=== PATIENT | female | born 1980 | race Caucasian/White ===

== ENCOUNTER 2017-04-19 00:07 | Emergency (ER) | payer MEDICAID, OTHER ==
[~2017-04-19] VITALS: Ht 160 cm; Wt 90.7 kg
[2017-04-19 00:29] LABS: BILIRUBIN,URINE NEGATIVE (NEGATIVE); KETONES,URINE NEGATIVE (NEGATIVE); LEUKOCYTE ESTERASE ,URINE NEGATIVE (NEGATIVE); NITRITE,URINE NEGATIVE (NEGATIVE); PH,URINE 6.5 (5-9); PROTEIN,URINE NEGATIVE (NEGATIVE); UROBILINOGEN,URINE NORMAL (NORMAL)
[2017-04-19] MEDS ORDERED: LACTATED RINGERS 1,000 ML IV ONE (00:32)
[2017-04-19] MEDS ORDERED: KETOROLAC 30 MG/ML VIAL IVP STA (00:32)
[2017-04-19 00:44] LABS: BASOPHILS % (AUTO) 0 % (0-10); EOSINOPHILS # (AUTO) 0.1 10^3/uL (0.0-0.3); EOSINOPHILS % (AUTO) 1 % (0-10); LYMPHOCYTES # (AUTO) 2.6 X 10^3 (1.0-4.0); LYMPHOCYTES % (AUTO) 34 % (12-44); MEAN CORPUSCULAR HEMOGLOBIN 31 PG (25-34); MEAN CORPUSCULAR HGB CONC 34 G/DL (32-36); MEAN CORPUSCULAR VOLUME 90 FL (80-99); MEAN PLATELET VOLUME 10.5 FL (7.4-10.4); MONOCYTES # (AUTO) 0.5 X 10^3 (0.0-1.0); MONOCYTES % (AUTO) 7 % (0-12); NEUTROPHILS # (AUTO) 4.4 X 10^3 (1.8-7.8); NEUTROPHILS % (AUTO) 59 % (42-75); PLATELET COUNT 268 10^3/uL (130-400); RED BLOOD COUNT 4.07 10^6/uL (4.35-5.85); RED CELL DISTRIBUTION WIDTH 14.2 % (10.0-14.5); WHITE BLOOD COUNT 7.5 10^3/uL (4.3-11.0)
[2017-04-19 01:12] LABS: ALANINE AMINOTRANSFERASE 18 U/L (0-55); ALBUMIN 3.9 GM/DL (3.2-4.5); ANION GAP 13 MMOL/L (5-14); ASPARTATE AMINO TRANSFERASE 16 U/L (5-34); BILIRUBIN,TOTAL 0.3 MG/DL (0.1-1.0); BLOOD UREA NITROGEN 7 MG/DL (7-18); BUN/CREATININE RATIO 10; CALCIUM 9.4 MG/DL (8.5-10.1); CARBON DIOXIDE 19 MMOL/L (21-32); CHLORIDE 106 MMOL/L (98-107); CREATININE SERUM 0.69 MG/DL (0.60-1.30); GFR ESTIMATED > 60; GLUCOSE 107 MG/DL (70-105); POTASSIUM 3.2 MMOL/L (3.6-5.0); SODIUM 138 MMOL/L (135-145); TOTAL PROTEIN 6.9 GM/DL (6.4-8.2)
[2017-04-19] MEDS ORDERED: RX-CYCLOBENZAPRINE 10 MG (FLEXERIL) TAB PPK#3 PO STA (01:45)
[2017-04-19] MEDS ORDERED: CYCL10TA9 PO (01:48)
[2017-04-19] MEDS ORDERED: NAPR500T4 PO (01:48)
--- NOTE | 2017-04-19 01:49 | ED Abdominal Pain ---
General Chief Complaint: Abdominal/GI Problems Stated Complaint: ABD PAIN,LOWER RT SIDE Nursing Triage Note: PT TO ED 7 W/ C/O RLQ PAIN ONSET X4 DAYS, WORSE TODAY. DENIES N/V/D. DENIES ANY URINARY C/O BUT DOES REPORT FEELS SIMILAR TO WHEN SHE HAD A KIDNEY STONE LAST Sepsis Screen: No Definite Risk Source of Information: Patient History of Present Illness Time Seen By Provider: 00:24 Initial Comments C/O RLQ PAIN X 4 DAYS, AND GRADUALLY GETTING WORSE PAIN IS CONSTANT AND IS MUCH WORSE TODAY PAIN IS WORSE WITH MOVEMENTS, BENDING OVER STATES SHE HAS HAD A KIDNEY STONE IN THE PAST AND THIS FEELS SIMILAR NO URINARY SYMPTOMS NO FEVER NO NAUSEA/VOMITING NO CHANGE IN CHRONIC LOWER BACK PAIN HAS NOT TAKEN ANYTHING FOR PAIN LMP 1 WEEK AGO, NORMAL. PT HAS HAD BTL PCP--JUST MOVED HERE 1 MONTH AGO FROM [place], BUT PLANS TO ESTABLISH WITH [facility] Allergies and Home Medications Allergies Coded Allergies: No Known Drug Allergies (Unverified , 04/19/17) Home Medications Cyclobenzaprine HCl 10 Mg Tablet, 10 MG PO Q8H, #15 Prescribed by: LINNETTE THOMAS on 04/19/17 0148 Naproxen 500 Mg Tablet, 500 MG PO BID, #20 Prescribed by: LINNETTE THOMAS on 04/19/17 0148 Review of Systems Constitutional: no symptoms reported Respiratory: No Symptoms Reported Cardiovascular: No Symptoms Reported Gastrointestinal: See HPI, Abdominal Pain, Denies Constipated, Denies Diarrhea , Denies Nausea, Denies Vomiting Genitourinary: No Symptoms Reported Musculoskeletal: see HPI Skin: no symptoms reported Psychiatric/Neurological: No Symptoms Reported Endocrine: No Symptoms Reported Hematologic/Lymphatic: No Symptoms Reported Past Ildrqqj-Uvvgyg-Dowlke Hx Patient Social History Alcohol Use: Occasionally Uses Recreational Drug Use: No Smoking Status: Current Everyday Smoker (1 PPD) Type Used: Cigarettes Recent Foreign Travel: No Contact w/Someone Who Travel: No Recent Infectious Disease Expo: No Recent Hopitalizations: No Physical Abuse: No Sexual Abuse: No Mistreated: No Fear: No Surgeries History of Surgeries: Yes (KIDNEY STONE/URETERAL STENT PLACEMENT, D&C) Surgeries: Gallbladder, Renal, Tubal Ligation Respiratory History of Respiratory Disorde: No Cardiovascular History of Cardiac Disorders: No Neurological History of Neurological Disord: No Reproductive System : No Hx Reproductive Disorders: No 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 Genitourinary History of Genitourinary Disor: Yes Genitourinary Disorders: Kidney Stones Gastrointestinal History of Gastrointestinal Di: Yes Gastrointestinal Disorders: Gastroesophageal Reflux Musculoskeletal History of Musculoskeletal Dis: Yes Musculoskeletal Disorders: Chronic Back Pain Endocrine History of Endocrine Disorders: No HEENT History of HEENT Disorders: No Cancer History of Cancer: No Psychosocial History of Psychiatric Problem: No Suicide Risk Score: 0 Integumentary History of Skin or Integumenta: No Blood Transfusions History of Blood Disorders: No Physical Exam Vital Signs Capillary Refill : Less Than 3 Seconds General Appearance: WD/WN, no apparent distress HEENT: PERRL/EOMI, other (EXTENSIVE DENTAL DECAY) Neck: normal inspection Respiratory: normal breath sounds, no respiratory distress, no accessory muscle use Cardiovascular: regular rate, rhythm, no murmur Gastrointestinal: normal bowel sounds, soft, no organomegaly, no pulsatile mass , No distended, No guarding, No rebound, tenderness (RLQ), No hernia, No mass Extremities: normal inspection Back: normal inspection, no CVA tenderness 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, no motor/sensory deficits, alert, normal mood/affect, oriented x 3 Skin: normal color, warm/dry, other (MULTIPLE SORES/SCABS/SCARS TO FACE) Progress/Results/Core Measures Results/Orders Lab Results Laboratory Tests Test 04/19/17 00:22 04/19/17 00:36 Range/Units Urine Color YELLOW Urine Clarity SLIGHTLY CLOUDY Urine pH 6.5 5-9 Urine Specific [place] 1.015 L 1.016-1.022 Urine Protein NEGATIVE NEGATIVE Urine Glucose (UA) NEGATIVE NEGATIVE Urine Ketones NEGATIVE NEGATIVE Urine Nitrite NEGATIVE NEGATIVE Urine Bilirubin NEGATIVE NEGATIVE Urine Urobilinogen NORMAL NORMAL MG/DL Urine Leukocyte Esterase NEGATIVE NEGATIVE Urine RBC (Auto) NEGATIVE NEGATIVE Urine RBC NONE /HPF Urine WBC NONE /HPF Urine Squamous Epithelial Cells 10-25 H /HPF Urine Crystals NONE /LPF Urine Bacteria TRACE /HPF Urine Casts NONE /LPF Urine Mucus SMALL H /LPF Urine Culture Indicated NO Urine Test NEGATIVE NEGATIVE Urine Opiates Screen POSITIVE H NEGATIVE Urine Oxycodone Screen NEGATIVE NEGATIVE Urine Methadone Screen NEGATIVE NEGATIVE Urine Propoxyphene Screen NEGATIVE NEGATIVE Urine Barbiturates Screen NEGATIVE NEGATIVE Ur Tricyclic Antidepressants Screen NEGATIVE NEGATIVE Urine Phencyclidine Screen NEGATIVE NEGATIVE Urine Amphetamines Screen NEGATIVE NEGATIVE Urine Methamphetamines Screen NEGATIVE NEGATIVE Urine Benzodiazepines Screen NEGATIVE NEGATIVE Urine Cocaine Screen NEGATIVE NEGATIVE Urine Cannabinoids Screen NEGATIVE NEGATIVE White Blood Count 7.5 4.3-11.0 10^3/uL Red Blood Count 4.07 L 4.35-5.85 10^6/uL Hemoglobin 12.6 11.5-16.0 G/DL Hematocrit 37 35-52 % Mean Corpuscular Volume 90 80-99 FL Mean Corpuscular Hemoglobin 31 25-34 PG Mean Corpuscular Hemoglobin Concent 34 32-36 G/DL Red Cell Distribution Width 14.2 10.0-14.5 % Platelet Count 268 130-400 10^3/uL Mean Platelet Volume 10.5 H 7.4-10.4 FL Neutrophils (%) (Auto) 59 42-75 % Lymphocytes (%) (Auto) 34 12-44 % Monocytes (%) (Auto) 7 0-12 % Eosinophils (%) (Auto) 1 0-10 % Basophils (%) (Auto) 0 0-10 % Neutrophils # (Auto) 4.4 1.8-7.8 X 10^3 Lymphocytes # (Auto) 2.6 1.0-4.0 X 10^3 Monocytes # (Auto) 0.5 0.0-1.0 X 10^3 Eosinophils # (Auto) 0.1 0.0-0.3 10^3/uL Basophils # (Auto) 0.0 0.0-0.1 10^3/uL Sodium Level 138 135-145 MMOL/L Potassium Level 3.2 L 3.6-5.0 MMOL/L Chloride Level 106 98-107 MMOL/L Carbon Dioxide Level 19 L 21-32 MMOL/L Anion Gap 13 5-14 MMOL/L Blood Urea Nitrogen 7 7-18 MG/DL Creatinine 0.69 0.60-1.30 MG/DL Estimat Glomerular Filtration Rate > 60 BUN/Creatinine Ratio 10 Glucose Level 107 H 70-105 MG/DL Calcium Level 9.4 8.5-10.1 MG/DL Total Bilirubin 0.3 0.1-1.0 MG/DL Aspartate Amino Transf (AST/SGOT) 16 5-34 U/L Alanine Aminotransferase (ALT/SGPT) 18 0-55 U/L Alkaline Phosphatase 101 40-136 U/L Total Protein 6.9 6.4-8.2 GM/DL Albumin 3.9 3.2-4.5 GM/DL My Orders Orders - LINNETTE THOMAS DO Urine Bedside (04/19/17 00:23) Ua Culture If Indicated (04/19/17 00:23) Cbc With Automated Diff (04/19/17 00:32) Comprehensive Metabolic Panel (04/19/17 00:32) Drug Screen Stat (Urine) (04/19/17 00:32) Ct Abd/Pelvis Wo(Kidney Stone) (04/19/17 00:32) Abdomen/Kub 1view (04/19/17 00:32) Saline Lock/Iv-Start (04/19/17 00:32) Ketorolac Injection (Toradol Injection) (04/19/17 00:32) Saline Lock/Iv-Start (04/19/17 00:32) Lactated Ringers (Lr 1000 Ml Iv Solution (04/19/17 00:32) Hcg,Qualitative Urine (04/19/17 00:57) Rx-Cyclobenzaprine Tablet (Rx-Flexeril T (04/19/17 01:45) Iv Push 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 Ed (04/19/17 ) Medications Given in ED Vital Signs/I&O Blood Pressure Mean: 94 Progress Note : Progress Note PAIN EASED AT DISMISSAL Diagnostic Imaging Comments ACUTE ABDOMEN XRAYS--NO ACUTE PROCESS, PENDING RADIOLOGIST REVIEW CT ABDOMEN/PELVIS--NO ACUTE PROCESS, NO RENAL/URETERAL STONES, LEFT ADRENAL NODULE, SMALL HIATAL HERNIA AND FAT-CONTAINING UMBILICAL HERNIA--PER [facility] VIA FAX @ [phone] Reviewed: Reviewed by Me Departure Impression Impression: Primary Impression: RLQ abdominal pain Additional Impression: LEFT ADRENAL NODULE Disposition: 01 HOME, SELF-CARE Condition: Stable Departure-Patient Inst. Referrals: NO,LOCAL PHYSICIAN (PCP) Primary Care Physician [facility] Patient Instructions: Acute Abdomen (Belly Pain), Adult (DC) Add. Discharge Instructions: ACTIVITIES TOLERATED FOLLOW UP WITH IN 3-4 DAYS IF NO BETTER--LIST PROVIDED RETURN TO ER IF WORSE FOLLOW UP WITH FOR FURTHER EVALUATION OF ADRENAL NODULE All discharge instructions reviewed with patient and/or family. Voiced understanding. 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
[2017-04-19 02:01] VITALS: BP 128/67
--- NOTE | 2017-04-19 07:09 | Diagnostic Imaging Report ---
INDICATION: Right-sided abdominal pain. COMPARISON: CT abdomen and pelvis performed earlier same day. FINDINGS: Nonobstructive bowel gas pattern. No free intraperitoneal air. Cholecystectomy. No mineralized renal or ureteral calculi by radiography. Lung bases are clear. Normal regional skeleton. IMPRESSION: 1. No acute abnormality of the abdomen by radiography. Dictated by: Dictated on workstation # [id number]
--- NOTE | 2017-04-19 07:16 | Diagnostic Imaging Report ---
PROCEDURE: CT urinary tract, rule out kidney stone. TECHNIQUE: Multiple contiguous axial images were obtained through the abdomen and pelvis without the use of intravenous contrast. INDICATION: Right-sided abdominal pain. COMPARISON STUDIES: None. FINDINGS: There is a minimal hiatal hernia. Lung bases are clear. The gallbladder is absent. No duct dilatation or calculi are seen. The liver, spleen, pancreas, and kidneys appear normal. There is a left adrenal nodule measuring zero Hounsfield units. This is 1.8 cm in diameter. Findings are consistent with an adenoma. The appendix and bowel loops appear normal. A minimal umbilical hernia is present containing fat only. No inflammation is present. The urinary bladder, uterus and adnexal structures appear normal. IMPRESSION: 1. There is a minimal hiatal hernia and umbilical hernia containing fat only. 2. Left adrenal nodule consistent with an adenoma. 3. No acute findings are seen. Dictated by: Dictated on workstation # [id number]
== END 2017-04-19 02:01 | disposition home or self-care (01) ==
LOC: ER 00:11
DX: R10.31 Right lower quadrant pain (principal); E27.8 Other specified disorders of adrenal gland; F17.210 Nicotine dependence, cigarettes, uncomplicated; Z87.442 Personal history of urinary calculi; Z98.51 Tubal ligation status; Z96.0 Presence of urogenital implants
CPT/HCPCS: 36415; 74000; 74176; 80053; 80306; 81000; 84703; 85025; 96361; 96374

== ENCOUNTER → 2017-07-02 | Outpatient (CLI) | payer MEDICAID ==
[~2017-07-02] MED LIST: CYCL10TA9 PO; NAPR500T3 PO
== END ==
LOC: RAD 15:24
PROVIDERS: ATTEND Nurse Practitioner Family
DX: H47.10 Unspecified papilledema (principal); Z53.29 Procedure and treatment not carried out because of patient's decision for other reasons

== ENCOUNTER 2017-07-05 10:38 | Emergency (ER) | payer MEDICAID ==
[~2017-07-05] VITALS: Ht 160 cm; Wt 90.7 kg
[~2017-07-05 10:38] MED LIST changes: -NAPR500T3 PO; +NAPR500T4 PO
--- NOTE | 2017-07-05 11:12 | ED Integumentary General ---
General Stated Complaint: VAG ABSCESS/LOWER ABD PAIN Source: patient Exam Limitations: no limitations History of Present Illness Time seen by provider: 11:11 Initial Comments To ER with an abscess to the left side of the mons pubis present for about 4 days as well as some lower abdominal pain. No dysuria. She has a history of MRSA abscesses. No fevers or chills. Timing/Duration: week Severity: moderate Allergies and Home Medications Allergies Coded Allergies: No Known Drug Allergies (Unverified , 07/05/17) Home Medications Cyclobenzaprine HCl 10 Mg Tablet, 10 MG PO Q8H, #15 Prescribed by: LINNETTE THOMAS on 04/19/17 0148 Hydrocodone/Acetaminophen 1 Each Tablet, 1 EACH PO Q4H PRN for PAIN-SEVERE, #14 Prescribed by: JIL ROMANO on 07/05/17 1156 Naproxen 500 Mg Tablet, 500 MG PO BID, #20 Prescribed by: LINNETTE THOMAS on 04/19/17 0148 Sulfamethoxazole/Trimethoprim 1 Each Tablet, 1 EACH PO BID, #14 Prescribed by: JIL ROMANO on 07/05/17 1156 Constitutional: see HPI, No chills EENTM: see HPI Respiratory: no symptoms reported Cardiovascular: no symptoms reported Genitourinary: no symptoms reported Musculoskeletal: no symptoms reported Skin: no symptoms reported Psychiatric/Neurological: No Symptoms Reported Past Lhsqyqq-Nwaaxi-Szuovx Hx Patient Social History Type Used: Cigarettes Recent Foreign Travel: No Contact w/Someone Who Travel: No Recent Hopitalizations: No Surgeries History of Surgeries: Yes (KIDNEY STONE/URETERAL STENT PLACEMENT, D&C) Surgeries: Gallbladder, Renal, Tubal Ligation Respiratory History of Respiratory Disorde: No Cardiovascular History of Cardiac Disorders: No Neurological History of Neurological Disord: No Reproductive System Hx Reproductive Disorders: No 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 Genitourinary History of Genitourinary Disor: Yes Genitourinary Disorders: Kidney Stones Gastrointestinal History of Gastrointestinal Di: Yes Gastrointestinal Disorders: Gastroesophageal Reflux Musculoskeletal History of Musculoskeletal Dis: Yes Musculoskeletal Disorders: Chronic Back Pain Endocrine History of Endocrine Disorders: No HEENT History of HEENT Disorders: No Cancer History of Cancer: No Psychosocial History of Psychiatric Problem: No Integumentary History of Skin or Integumenta: No Blood Transfusions History of Blood Disorders: No Physical Exam Vital Signs Vital Sign - Last 12Hours 07/05/17 11:11 Temp 98.5 Pulse 108 Resp 18 B/P (MAP) 117/81 Pulse Ox 100 Capillary Refill : General Appearance: WD/WN, no apparent distress HEENT: PERRL/EOMI, normal ENT inspection Neck: non-tender, full range of motion Respiratory: no respiratory distress, no accessory muscle use Gastrointestinal: normal bowel sounds, non tender, soft Neurologic/Psychiatric: alert, normal mood/affect, oriented x 3 Skin: normal color, warm/dry Skin Problem Character: abscess (induration to the left side of the mons pubis up into the inguinal canal that measures about 10 cm in length. Minimal erythema. There is a small area of fluctuance.) I&D : Blade Size: 11 I & D Procedure: betadine prep Packing/Drain: 08/22 [place] Drain Progress Anesthetized with 7 mL of 2 percent lidocaine without epinephrine. Single stab incision made with 11 blade scalpel. Moderate amount of prune material expressed. Foul-smelling. Culture collected and sent to lab. Ordering Stevo suture in place with 2 sutures size 4-0 Prolene. Progress/Results/Core Measures Results/Orders Lab Results Laboratory Tests Test 07/05/17 11:05 07/05/17 11:21 Range/Units Urine Color YELLOW Urine Clarity CLEAR Urine pH 6.5 5-9 Urine Specific [place] 1.010 L 1.016-1.022 Urine Protein NEGATIVE NEGATIVE Urine Glucose (UA) NEGATIVE NEGATIVE Urine Ketones NEGATIVE NEGATIVE Urine Nitrite NEGATIVE NEGATIVE Urine Bilirubin NEGATIVE NEGATIVE Urine Urobilinogen NORMAL NORMAL MG/DL Urine Leukocyte Esterase NEGATIVE NEGATIVE Urine RBC (Auto) 2+ H NEGATIVE Urine RBC NONE /HPF Urine WBC NONE /HPF Urine Squamous Epithelial Cells 5-10 /HPF Urine Crystals NONE /LPF Urine Bacteria TRACE /HPF Urine Casts NONE /LPF Urine Mucus NEGATIVE /LPF Urine Culture Indicated NO White Blood Count 10.3 4.3-11.0 10^3/uL Red Blood Count 3.88 L 4.35-5.85 10^6/uL Hemoglobin 12.1 11.5-16.0 G/DL Hematocrit 36 35-52 % Mean Corpuscular Volume 92 80-99 FL Mean Corpuscular Hemoglobin 31 25-34 PG Mean Corpuscular Hemoglobin Concent 34 32-36 G/DL Red Cell Distribution Width 14.0 10.0-14.5 % Platelet Count 245 130-400 10^3/uL Mean Platelet Volume 10.5 H 7.4-10.4 FL Neutrophils (%) (Auto) 72 42-75 % Lymphocytes (%) (Auto) 19 12-44 % Monocytes (%) (Auto) 8 0-12 % Eosinophils (%) (Auto) 0 0-10 % Basophils (%) (Auto) 0 0-10 % Neutrophils # (Auto) 7.4 1.8-7.8 X 10^3 Lymphocytes # (Auto) 1.9 1.0-4.0 X 10^3 Monocytes # (Auto) 0.9 0.0-1.0 X 10^3 Eosinophils # (Auto) 0.0 0.0-0.3 10^3/uL Basophils # (Auto) 0.0 0.0-0.1 10^3/uL My Orders Orders - JIL ROMANO APRN Cbc With Automated Diff (07/05/17 11:09) Saline Lock/Iv-Start (07/05/17 11:09) Ua Culture If Indicated (07/05/17 11:09) Ct Pelvis W (07/05/17 11:09) Lidocaine 2% Injection 20 Ml (Xylocaine (07/05/17 11:15) Wound Culture (07/05/17 11:09) Sulfamethoxazole/Trimet Ds Tab (Bactrim (07/05/17 11:15) Hydrocodone/Apap 5/325 Tablet (Lortab 5 (07/05/17 11:15) Iohexol Injection (Omnipaque 350 Mg/Ml 1 (07/05/17 11:15) Ns (Ivpb) (Sodium Chloride 0.9% Ivpb Bag (07/05/17 11:15) Medications Given in ED Current Medications Medications Dose Ordered Sig/[place] Route Start Time Stop Time Status Last Admin Dose Admin Acetaminophen/ Hydrocodone Bitart 1 tab ONCE ONCE PO 07/05/17 11:15 07/05/17 11:16 DC 07/05/17 11:17 1 TAB Iohexol 100 ml ONCE ONCE IV 07/05/17 11:15 07/05/17 11:22 DC 07/05/17 12:13 100 ML Lidocaine HCl 20 ml ONCE ONCE INJ 07/05/17 11:15 07/05/17 11:16 DC 11/17/17 11:30 8 ML Sodium Chloride 100 ml ONCE ONCE IV 07/05/17 11:15 07/05/17 11:22 DC 07/05/17 12:14 80 ML Trimethoprim/ Sulfamethoxazole 1 ea ONCE ONCE PO 07/05/17 11:15 07/05/17 11:16 DC 07/05/17 11:17 1 EA Vital Signs/I&O Vital Sign - Last 12Hours 07/05/17 11:11 Temp 98.5 Pulse 108 Resp 18 B/P (MAP) 117/81 Pulse Ox 100 Diagnostic Imaging Diagonstic Imaging: CT Comments NAME: LAURYN RODRIGUEZ [facility] REC#: [id number] PT STATUS: REG ER : 1980 PHYSICIAN: JIL ROMANO APRN ADMIT DATE: 07/05/17/ER Draft Date of Exam:07/05/17 CT PELVIS W PROCEDURE: CT pelvis with contrast. TECHNIQUE: Oral and intravenous contrast were administered with pelvic CT performed. INDICATION: Evaluation. Lower pelvic pain for 2 days. COMPARISON: CT abdomen/pelvis on 09/07/2016. FINDINGS: There is a high attenuation object in the left inguinal region which may be at least partially external to the patient. There is a small focus of gas within the subcutaneous tissues at this site as seen on axial image 46. There is adjacent inflammatory stranding of the subcutaneous tissues. There are multiple asymmetrically prominent left inguinal lymph nodes with one example on axial image 39 measuring up to 13 mm in short axis. There is no drainable fluid collection or abscess. There is no identified inguinal hernia. There is a small fat-containing umbilical hernia. The uterus and adnexa are grossly unremarkable in appearance on CT for patient age. The appendix is normal and well seen on axial image 16 and adjacent sequential images. The visualized portions of the intestinal tract are not distended. There is no identified free intraperitoneal air. There is no free pelvic fluid. There is no otherwise noted lymph node in the pelvis which meets CT size criteria for adenopathy. There is no identified acute bony abnormality. IMPRESSION: 1. High attenuation object in the left inguinal region which at least partially appears to extend within the subcutaneous tissues. This may potentially relate to a foreign body or marker type device. Recommend correlation. There is a small amount of adjacent subcutaneous gas. There is prominent adjacent inflammatory stranding which is nonspecific although may relate to cellulitis in the appropriate clinical scenario. There is no drainable fluid collection or abscess. 2. Asymmetrically enlarged left inguinal lymph nodes which are likely reactive to the process associated with the inflammatory stranding of the subcutaneous tissues. Dictated on workstation # [id number] Dict: 07/05/17 1301 Trans: 07/05/17 1311 [id number] Interpreted by: SUSAN DAVIS MD Electronically signed by: Departure Impression Impression: Primary Impression: Groin abscess Disposition: HOME, SELF-CARE Condition: Stable Departure-Patient Inst. Decision time for Depature: 11:54 Referrals: [facility] (PCP/Family) Primary Care Physician Patient Instructions: Abscess Incision and Drainage Add. Discharge Instructions: 1. Leave the drain in place. Return to the emergency room on Saturday the to have the drain removed. Keep this covered with gauze to collect drainage. Return to ER before then for any fevers or worsening symptoms. Take antibiotics and pain medication as directed you may shower and allow water to run over this area. Scripts Hydrocodone/Acetaminophen ([place] 5-325 Tablet) 1 Each Tablet 1 EACH PO Q4H Y for PAIN-SEVERE, #14 TAB Prov: JIL ROMANO APRN 07/05/17 Sulfamethoxazole/Trimethoprim (Bactrim Ds Tablet) 1 Each Tablet 1 EACH PO BID, #14 TAB Prov: JIL ROMANO APRN 07/05/17 Work/School Note: Work Release Form Date Seen in the Emergency Department: Jul 05, 2017 Return to Work: Jul 07, 2017 JIL ROMNAO APRN Jul 05, 2017 11:12
[2017-07-05] MEDS ORDERED: TRIM/SULFAMETH 160/800 (SEPTRA DS) TAB PO ONE (11:15)
[2017-07-05] MEDS ORDERED: IOHEXOL 350 MG/ML 100 ML (OMNIPAQUE 350) VIAL IV ONE (11:15)
[2017-07-05] MEDS ORDERED: HYDROcodone/APAP 5 MG/325 MG (LORTAB) TAB PO ONE (11:15)
[2017-07-05] MEDS ORDERED: NS 100 ML (IVPB) BAG IV ONE (11:15)
[2017-07-05] MEDS ORDERED: LIDOCAINE 2% 20 ML (XYLOCAINE) VIAL INJ ONE (11:15)
[2017-07-05 11:27] LABS: BILIRUBIN,URINE NEGATIVE (NEGATIVE); KETONES,URINE NEGATIVE (NEGATIVE); LEUKOCYTE ESTERASE ,URINE NEGATIVE (NEGATIVE); NITRITE,URINE NEGATIVE (NEGATIVE); PH,URINE 6.5 (5-9); PROTEIN,URINE NEGATIVE (NEGATIVE); UROBILINOGEN,URINE NORMAL (NORMAL)
[2017-07-05 11:29] LABS: BASOPHILS % (AUTO) 0 % (0-10); EOSINOPHILS % (AUTO) 0 % (0-10); LYMPHOCYTES # (AUTO) 1.9 X 10^3 (1.0-4.0); LYMPHOCYTES % (AUTO) 19 % (12-44); MEAN CORPUSCULAR HEMOGLOBIN 31 PG (25-34); MEAN CORPUSCULAR HGB CONC 34 G/DL (32-36); MEAN CORPUSCULAR VOLUME 92 FL (80-99); MEAN PLATELET VOLUME 10.5 FL (7.4-10.4); MONOCYTES # (AUTO) 0.9 X 10^3 (0.0-1.0); MONOCYTES % (AUTO) 8 % (0-12); NEUTROPHILS # (AUTO) 7.4 X 10^3 (1.8-7.8); NEUTROPHILS % (AUTO) 72 % (42-75); PLATELET COUNT 245 10^3/uL (130-400); RED BLOOD COUNT 3.88 10^6/uL (4.35-5.85); WHITE BLOOD COUNT 10.3 10^3/uL (4.3-11.0)
[2017-07-05] MEDS ORDERED: SULF1TAB35 PO (11:56)
[2017-07-05] MEDS ORDERED: HYDR-757 PO (11:56)
--- NOTE | 2017-07-05 13:11 | Diagnostic Imaging Report ---
PROCEDURE: CT pelvis with contrast. TECHNIQUE: Oral and intravenous contrast were administered with pelvic CT performed. INDICATION: Evaluation. Lower pelvic pain for 2 days. COMPARISON: CT abdomen/pelvis on 09/07/2016. FINDINGS: There is a high attenuation object in the left inguinal region which may be at least partially external to the patient. There is a small focus of gas within the subcutaneous tissues at this site as seen on axial image 46. There is adjacent inflammatory stranding of the subcutaneous tissues. There are multiple asymmetrically prominent left inguinal lymph nodes with one example on axial image 39 measuring up to 13 mm in short axis. There is no drainable fluid collection or abscess. There is no identified inguinal hernia. There is a small fat-containing umbilical hernia. The uterus and adnexa are grossly unremarkable in appearance on CT for patient age. The appendix is normal and well seen on axial image 16 and adjacent sequential images. The visualized portions of the intestinal tract are not distended. There is no identified free intraperitoneal air. There is no free pelvic fluid. There is no otherwise noted lymph node in the pelvis which meets CT size criteria for adenopathy. There is no identified acute bony abnormality. IMPRESSION: 1. High attenuation object in the left inguinal region which at least partially appears to extend within the subcutaneous tissues. This may potentially relate to a foreign body or marker type device. Recommend correlation. There is a small amount of adjacent subcutaneous gas. There is prominent adjacent inflammatory stranding which is nonspecific although may relate to cellulitis in the appropriate clinical scenario. There is no drainable fluid collection or abscess. 2. Asymmetrically enlarged left inguinal lymph nodes which are likely reactive to the process associated with the inflammatory stranding of the subcutaneous tissues. Dictated by: Dictated on workstation # [id number]
[2017-07-05 13:37] VITALS: BP 121/70
== END 2017-07-05 13:37 | disposition home or self-care (01) ==
LOC: EDUNIT# 10:38 → ER 10:40
DX: L02.214 Cutaneous abscess of groin (principal); K21.9 Gastro-esophageal reflux disease without esophagitis; Z87.442 Personal history of urinary calculi; Z98.51 Tubal ligation status; Z96.0 Presence of urogenital implants; Z86.19 Personal history of other infectious and parasitic diseases
CPT/HCPCS: 36415; 72193; 81000; 85025; 87070; 87205

== ENCOUNTER → 2017-07-08 | Outpatient (CLI) | payer MEDICAID ==
[~2017-07-08] MED LIST changes: +HYDR-757 PO; +SULF1TAB35 PO
--- NOTE | 2017-07-08 16:37 | Diagnostic Imaging Report ---
PROCEDURE: MR imaging of the brain without contrast. TECHNIQUE: Multiplanar, multisequence MR imaging of the brain was performed without contrast. INDICATION: Papilledema bilaterally. Pseudotumor. Migraines. FINDINGS: The ventricles are normal in size, shape, and position. There is no diffusion restriction with no acute parenchymal edema, hemorrhage, mass, or other abnormality. There is no extra-axial mass or hemorrhage. No intraorbital abnormality is seen. IMPRESSION: Normal MRI of the brain. Dictated by: Dictated on workstation # [id number]
== END ==
LOC: RAD 15:14
PROVIDERS: ATTEND Nurse Practitioner Family
DX: H47.10 Unspecified papilledema (principal); G43.909 Migraine, unspecified, not intractable, without status migrainosus
CPT/HCPCS: 70551

== ENCOUNTER 2017-07-09 14:11 | Emergency (ER) | payer MEDICAID ==
[~2017-07-09] VITALS: Ht 162.6 cm; Wt 90.7 kg
[2017-07-09 14:41] VITALS: BP 113/74
[2017-07-09] MEDS ORDERED: HYDR-757 PO (14:43)
--- NOTE | 2017-07-09 14:43 | ED Suture Removal/Wound Check ---
Suture/Wound Re-check Suture Removal/Wound Recheck : Suture Removal/Wound Recheck: Packing removed General Appearance: WD/WN, no apparent distress Skin Exam: normal color, warm/dry Physical Exam Vital Signs Vital Sign - Last 12Hours 07/09/17 14:30 Pulse 78 Resp 18 B/P (MAP) 113/74 Pulse Ox 99 Capillary Refill : General Appearance: WD/WN, no apparent distress HEENT: PERRL/EOMI, normal ENT inspection Neck: non-tender, full range of motion Respiratory: no respiratory distress, no accessory muscle use Gastrointestinal: non tender, soft Neurologic/Psychiatric: alert, normal mood/affect, oriented x 3 Skin: normal color, warm/dry Skin Problem Character: abscess Comments 1 suture from the [place] drain had come out. The other suture was clipped and removed. No drainage at this time though she does report she is getting persistent drainage. No erythema surrounding this. There is about 2-3 cm of surrounding induration however. Departure Impression Impression: Primary Impression: Wound check, abscess Disposition: 01 HOME, SELF-CARE Condition: Improved Departure-Patient Inst. Decision time for Depature: 14:42 Referrals: [facility] (PCP) Primary Care Physician Patient Instructions: SUTURE CHECK-NO COMPLICATION Add. Discharge Instructions: 1. You may have continued drainage for 2-3 weeks as this wound heals. Return to ER for any fevers, worsening pain, redness around this. All discharge instructions reviewed with patient and/or family. Voiced understanding.PLEASE FOLLOW UP WITH YOUR PRIMARY CARE PHYSCIAN Scripts Hydrocodone/Acetaminophen ([place] 5-325 Tablet) 1 Each Tablet 1 EACH PO Q6H Y for PAIN-SEVERE TO BREAKTHROUGH, #10 TAB Prov: JIL ROMANO APRN 07/09/17 JIL ROMANO APRN Jul 09, 2017 14:43
== END 2017-07-09 14:42 | disposition home or self-care (01) ==
LOC: EDUNIT# 14:11 → ER 14:13
DX: L02.215 Cutaneous abscess of perineum (principal)

== ENCOUNTER 2022-04-17 17:43 | Emergency (ER) | payer SELFPAY ==
[~2022-04-17] VITALS: Ht 160 cm; Wt 96.0 kg
[~2022-04-17 17:43] MED LIST changes: +CYCL10TA25 PO; -CYCL10TA9 PO; +HYDR-4226 PO; -HYDR-757 PO; +NAPR-915 PO; -NAPR500T4 PO; -SULF1TAB35 PO; +SULF1TAB38 PO
[2022-04-17 17:45] VITALS: BP 140/90
[2022-04-17 18:23] LABS: BILIRUBIN,URINE NEGATIVE (NEGATIVE); CLARITY,URINE CLEAR; COLOR,URINE YELLOW; GLUCOSE, URINE (UA) NEGATIVE (NEGATIVE); KETONES,URINE NEGATIVE (NEGATIVE); LEUKOCYTE ESTERASE ,URINE NEGATIVE (NEGATIVE); NITRITE,URINE NEGATIVE (NEGATIVE); PH,URINE 5.5 (5-9); PROTEIN,URINE NEGATIVE (NEGATIVE)
[2022-04-17] MEDS ORDERED: SULF1TAB38 PO (18:28)
--- NOTE | 2022-04-17 18:28 | ED Integumentary General ---
General Chief Complaint: Skin/Wound Problems Stated Complaint: VAGINAL PAIN Nursing Triage Note: ARRIVED VIA AMB TO ROOM 06 WITH COMPLAINTS OF A RIGHT GROIN ABSCESS THAT STARTED YESTERDAY. Source: patient Exam Limitations: no limitations History of Present Illness Date Seen by Provider: Apr 17, 2022 Time Seen by Provider: 18:19 Allergies and Home Medications Allergies Coded Allergies: No Known Drug Allergies (Unverified , 07/05/17) Patient Home Medication List Cyclobenzaprine HCl (Cyclobenzaprine HCl) 10 Mg Tablet, 10 MG PO Q8H Prescribed by: LINNETTE THOMAS on 04/19/17 0148 Hydrocodone/Acetaminophen (Hydrocodone/Acetaminophen 5 MG/325 MG TAB) 1 Each Tablet, 1 EACH PO Q4H PRN for PAIN-SEVERE Prescribed by: JIL ROMANO on 07/05/17 1156 Hydrocodone/Acetaminophen (Hydrocodone/Acetaminophen 5 MG/325 MG TAB) 1 Each Ta blet, 1 EACH PO Q6H PRN for PAIN-SEVERE TO BREAKTHROUGH Prescribed by: JIL ROMANO on 07/09/17 1443 Naproxen (Naproxen) 500 Mg Tablet, 500 MG PO BID Prescribed by: LINNETTE THOMAS on 04/19/17 0148 Sulfamethoxazole/Trimethoprim (Bactrim Ds Tablet) 1 Each Tablet, 1 EACH PO BID Prescribed by: MOI AVITIA on 04/17/22 1828 Past Vdpremn-Rprlmb-Ybkxur Hx Patient Social History Tobacco Use?: Yes Smokeless Tobacco Frequency: Current Everyday User Substance use?: No Alcohol Use?: No Immunizations Up To Date Tetanus Booster (TDap): Less than 5yrs Past Medical History Surgeries: Yes (KIDNEY STONE/URETERAL STENT PLACEMENT, D&C) Gallbladder, Renal, Tubal Ligation Respiratory: No Cardiac: No Neurological: No Last Menstrual Period: Mar 23, 2022 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 Genitourinary: Yes Kidney Stones Gastrointestinal: Yes Gastroesophageal Reflux Musculoskeletal: Yes Chronic Back Pain Endocrine: No HEENT: No Cancer: No Psychosocial: No Integumentary: No Blood Disorders: No Physical Exam Vital Signs Vital Signs - First Documented 04/17/22 17:45 Temp 36.4 Pulse 118 Resp 16 B/P (MAP) 140/90 (107) Pulse Ox 97 O2 Delivery Room Air Capillary Refill : Less Than 3 Seconds Progress/Results/Core Measures Results/Orders Lab Results Laboratory Tests Test 04/17/22 18:15 Range/Units Urine Color YELLOW Urine Clarity CLEAR Urine pH 5.5 5-9 Urine Specific [place] >=1.030 1.016-1.022 Urine Protein NEGATIVE NEGATIVE Urine Glucose (UA) NEGATIVE NEGATIVE Urine Ketones NEGATIVE NEGATIVE Urine Nitrite NEGATIVE NEGATIVE Urine Bilirubin NEGATIVE NEGATIVE Urine Urobilinogen 1.0 < = 1.0 MG/DL Urine Leukocyte Esterase NEGATIVE NEGATIVE Urine RBC (Auto) TRACE-I H NEGATIVE Urine RBC NONE /HPF Urine WBC 2-5 /HPF Urine Squamous Epithelial Cells 2-5 /HPF Urine Renal Epithelial Cells NONE /HPF Urine Crystals NONE /LPF Urine Bacteria LARGE H /HPF Urine Casts NONE /LPF Urine Mucus LARGE H /LPF Urine Culture Indicated YES My Orders Orders - MOI AVITIA APRN Ua Culture If Indicated (04/17/22 17:54) Sulfamethoxazole/Trimet Ds Tab (Bactrim (04/17/22 18:30) Hydrocodone/Apap 5/325 Tablet (Lortab 5 (04/17/22 18:30) Urine Culture (04/17/22 18:15) Medications Given in ED Current Medications Medications Dose Ordered Sig/[place] Route Start Time Stop Time Status Last Admin Dose Admin Acetaminophen/ Hydrocodone Bitart 1 ea ONCE ONCE PO 04/17/22 18:30 04/17/22 18:30 DC 04/17/22 18:23 1 EA Trimethoprim/ Sulfamethoxazole 1 ea ONCE ONCE PO 04/17/22 18:30 04/17/22 18:30 DC 04/17/22 18:22 1 EA Vital Signs/I&O 04/17/22 17:45 Temp 36.4 Pulse 118 Resp 16 B/P (MAP) 140/90 (107) Pulse Ox 97 O2 Delivery Room Air Blood Pressure Mean: 107 Departure Impression Primary Impression: Vagina boil Disposition: 01 HOME, SELF-CARE Condition: Improved Departure-Patient Inst. Decision time for Depature: 18:22 Referrals: [facility] (PCP/Family) Primary Care Physician Patient Instructions: Boil, Adult ED Add. Discharge Instructions: 1. Most boils will go away on their own in a few days or within a week or two. You can help ease the symptoms and speed up the process by taking the following steps: 2. Apply a warm compress. Place a clean, warm, wet washcloth over the boil, and leave it there for 10 to 15 minutes. Repeat this process three or four times a day until the boil is gone. The heat from the compress helps promote more blood circulation, so white blood cells can fight off the remaining infection. 3. Wear loose bottoms while its healing. Until the boil disappears, reduce friction in the area, and wear loose underwear and clothing. 4. Clean and protect. If the boil bursts, clean the area thoroughly and apply an antibiotic ointment like combined bacitracin, neomycin, and polymyxin B (Neosporin). Then, cover with a sterile gauze or adhesive bandage. Keep the area clean, and change the dressing daily. 5. Dont pop or prick. Avoid picking or piercing the boil. Opening the boil releases the bacteria and can spread the infection. You may also make the pain and tenderness worse. 6. Take axco-nak-qewhcxh (OTC) painkillers. OTC pain medication may be necessary to ease the pain and inflammation the boil causes. Take ibuprofen (Advil) or acetaminophen (Tylenol) according to the package directions. 7. Wash your hands. Before you touch the boil or surrounding area, wash your hands with antibacterial soap and warm water. This will help keep you from introducing new bacteria to the boil. Wash your hands after youve touched the boil, too, to prevent spreading the infection to other areas of your body. 8. Take antibiotics twice a day as directed even if your symptoms begin to improve. All discharge instructions reviewed with patient and/or family. Voiced understanding. Scripts Hydrocodone/Acetaminophen (Hydrocodone-Acetamin 5-325 mg) 5 Mg-325 Mg Tablet 1 TAB PO Q6H PRN for PAIN-MODERATE (5-7), #10 TAB 0 Refills Prov: MOI AVITIA [employer] 04/17/22 Mupirocin Calcium (Mupirocin) 2 % Cream..g. 1 APPFUL TP BID, #15 GM 0 Refills Prov: MOI AVITIA [employer] 04/17/22 Sulfamethoxazole/Trimethoprim (Bactrim Ds Tablet) 1 Each Tablet 1 EACH PO BID, #14 TAB Prov: MOI AVITIA [employer] 04/17/22 MOI AVITIA [employer] Apr 17, 2022 18:27
[2022-04-17 18:30] LABS: BACTERIA,URINE LARGE /HPF
[2022-04-17] MEDS ORDERED: HYDROcodone/APAP 5 MG/325 MG (LORTAB) TAB PO ONE (18:30)
[2022-04-17] MEDS ORDERED: TRIM/SULFAMETH 160/800 (SEPTRA DS) TAB PO ONE (18:30)
[2022-04-17] MEDS ORDERED: MUPI15CR11 TP (18:42)
[2022-04-17] MEDS ORDERED: ACHD5005 PO (18:42)
== END 2022-04-17 18:30 | disposition home or self-care (01) ==
LOC: EDUNIT# 17:43 → ER 17:45
DX: N76.4 Abscess of vulva (principal); F17.200 Nicotine dependence, unspecified, uncomplicated; Z28.310 Unvaccinated for COVID-19
CPT/HCPCS: 81000; 87088; 99283

== ENCOUNTER 2023-04-30 20:31 | Emergency (ER) | payer SELFPAY ==
[~2023-04-30] VITALS: Ht 162 cm; Wt 101.2 kg
[~2023-04-30 20:31] MED LIST changes: +ACHD5005 PO; +MUPI15CR11 TP
[2023-04-30 20:43] VITALS: BP 145/83
[2023-04-30] MEDS ORDERED: NS IV 1000 ML 1,000 ML IV SCH (21:00)
[2023-04-30] MEDS ORDERED: ONDANSETRON INJECTION 4 MG/2 ML (SDV) IVP ONE (21:00)
[2023-04-30] MEDS ORDERED: KETOROLAC INJ 15 MG/ML VIAL IVP ONE (21:00)
[2023-04-30 21:10] LABS: BASOPHILS % (AUTO) 0 % (0-10); EOSINOPHILS # (AUTO) 0.1 10^3/uL (0.0-0.3); EOSINOPHILS % (AUTO) 1 % (0-10); HEMATOCRIT 36 % (35-52); HEMOGLOBIN 11.8 g/dL (11.5-16.0); LYMPHOCYTES # (AUTO) 2.4 10^3/uL (1.0-4.0); LYMPHOCYTES % (AUTO) 33 % (12-44); MEAN CORPUSCULAR HEMOGLOBIN 29 pg (25-34); MEAN CORPUSCULAR HGB CONC 33 g/dL (32-36); MEAN CORPUSCULAR VOLUME 89 fL (80-99); MEAN PLATELET VOLUME 10.5 fL (9.0-12.2); MONOCYTES # (AUTO) 0.4 10^3/uL (0.0-1.0); MONOCYTES % (AUTO) 5 % (0-12); NEUTROPHILS # (AUTO) 4.4 10^3/uL (1.8-7.8); NEUTROPHILS % (AUTO) 60 % (42-75); PLATELET COUNT 297 10^3/uL (130-400); POTASSIUM 3.3 MMOL/L (3.6-5.0); WHITE BLOOD COUNT 7.2 10^3/uL (4.3-11.0)
[2023-04-30 21:12] LABS: CALCIUM 9.3 MG/DL (8.5-10.1)
[2023-04-30 21:16] LABS: CREATININE SERUM 0.74 MG/DL (0.60-1.30)
--- NOTE | 2023-04-30 21:17 | ED Abdominal Pain ---
General Chief Complaint: Abdominal/GI Problems Stated Complaint: SHARP PAIN IN RT SIDE Nursing Triage Note: patient states rt flank pain x4 days. states worse today, "had to call off work" patient states she has had pain like this before. states hx of kidney stone four years ago. Source of Information: Patient Exam Limitations: No Limitations (SALEEM MENA) History of Present Illness Date Seen by Provider: Apr 30, 2023 Time Seen by Provider: 21:00 Initial Comments 42yo F with h/o nephrolithiasis requiring lithotripsy and stenting and tubal ligation presents to the ED with c/o new onset RLQ pain and R flank pain that started 4 days and has been worsening. Pt notes that pain had no inciting event, she was sitting down after work when she suddenly experienced sharp, RLQ pain and cramping in her R flank. Pt states that pain is worse when laying or standing still/in the same position for too long and is improved when laying do wn and changing positions. Pt states that RLQ is a 7/10 sharp, stabbing/throbbing, pain that makes it hard to take deep breaths. Pt has been taking tylenol and ibuprofen for pain with no relief. Last dose of medication was [id number] tabs of tylenol ~3hours ago. Pt states that pain is similar to when she had a kidney stone ~ 4 years ago. Pt notes that she has been experiencing a decreased appetite secondary to pain and new onset nonproductive cough that started 2 days ago. Pt denies dysuria or hematuria but does note that she feels like she has not been completely emptying bladder when voiding. LMP was 2 weeks ago and LBM was this morning and was regular. Denies fever, nausea, vomiting, diarrhea, abnormal vaginal discharge, AMRIE, chills, CP, and h/o colonoscopy. Timing/Duration: 3-4 Days Severity/Quality: Moderate Location: RLQ, Flank (right) Radiation: No Radiation Activities at Onset: None Modifying Factors: Improves With Lying down (initially better and then worse if in same position for too long), Improves With Movement (makes better) Associated Symptoms: Back Pain (R flank), Shortness of Air (secondary to pain) (SALEEM MENA) Allergies and Home Medications Allergies Coded Allergies: No Known Drug Allergies (Unverified , 07/05/17) Patient Home Medication List Home Medication List Reviewed: Yes (SALEEM MENA) Home Medication List Reviewed: Yes (SHAHZAD OLIVIA MD) Cyclobenzaprine HCl (Cyclobenzaprine HCl) 10 Mg Tablet, 10 MG PO Q8H Prescribed by: LINNETTE THOMAS on 04/19/17 0148 Hydrocodone/Acetaminophen (Hydrocodone/Acetaminophen 5 MG/325 MG TAB) 1 Each Tablet, 1 EACH PO Q4H PRN for PAIN-SEVERE Prescribed by: JIL ROMANO on 07/05/17 1156 Hydrocodone/Acetaminophen (Hydrocodone/Acetaminophen 5 MG/325 MG TAB) 1 Each Tablet, 1 EACH PO Q6H PRN for PAIN-SEVERE TO BREAKTHROUGH Prescribed by: JIL ROMANO on 07/09/17 1443 Hydrocodone/Acetaminophen (Hydrocodone-Acetamin 5-325 mg) 5 Mg-325 Mg Tablet, 1 TAB PO Q6H PRN for PAIN-MODERATE (5-7) Prescribed by: MOI AVITIA on 04/17/22 184 Mupirocin Calcium (Mupirocin) 2 % Cream..g., 1 APPFUL TP BID Prescribed by: MOI AVITIA on 04/17/22 184 Naproxen (Naproxen) 500 Mg Tablet, 500 MG PO BID Prescribed by: LINNETTE THOMAS on 04/19/17 0148 Sulfamethoxazole/Trimethoprim (Bactrim Ds Tablet) 1 Each Tablet, 1 EACH PO BID Prescribed by: MOI AVITIA on 04/17/22 1828 Review of Systems Review of Systems Constitutional: no symptoms reported; No chills, No fever EENTM: No Symptoms Reported Respiratory: Cough (nonproductive), Shortness of Air (secondary to pain) Cardiovascular: See HPI; Denies Chest Pain Gastrointestinal: Abdominal Pain (RLQ); Denies Constipated, Denies Diarrhea, Denies Nausea; Poor Appetite (decreased ); Denies Vomiting Genitourinary: Denies Burning, Denies Discharge, Denies Frequency; Flank Pain (R flank); Denies Hematuria, Denies Pain, Denies Urgency Musculoskeletal: no symptoms reported Skin: no symptoms reported Psychiatric/Neurological: No Symptoms Reported Endocrine: No Symptoms Reported Hematologic/Lymphatic: No Symptoms Reported (SALEEM MENA) All Other Systems Reviewed Negative Unless Noted: Yes (SALEEM MENA) Past Fwengjs-Kihpql-Tzmxeb Hx Patient Social History Tobacco Use?: Yes Tobacco type used: Cigarettes Smoking Status: Current Everyday Smoker (.5ppd) Substance use?: No Alcohol Use?: Yes Alcohol Frequency: Rarely (SALEEM MENA) Immunizations Up To Date Tetanus Booster (TDap): Less than 5yrs (SALEEM MENA) Past Medical History Surgery/Hospitalization HX: Gallbladder, D&C, Tubal, Kidney Stone removal and ureteral stent Surgeries: Yes (KIDNEY STONE/URETERAL STENT PLACEMENT, D&C) Gallbladder, Renal, Tubal Ligation Respiratory: No Cardiac: No Neurological: No 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 Genitourinary: Yes Kidney Stones Gastrointestinal: Yes Gastroesophageal Reflux, Gall Bladder Disease Musculoskeletal: Yes Chronic Back Pain Endocrine: No HEENT: No Cancer: No Psychosocial: Yes Anxiety Integumentary: No Blood Disorders: No (SALEEM MENA) Family Medical History Cancer (Grandmother-colon (age 76) and breast ) (SALEEM MENA) Physical Exam Vital Signs Vital Signs - First Documented 04/30/23 20:43 Temp 36.9 Pulse 89 Resp 20 B/P (MAP) 145/83 (103) Pulse Ox 99 O2 Delivery Room Air (SHAHZAD OLIVIA MD) Vital Signs Capillary Refill : Less Than 3 Seconds (SALEEM MENA) Height/Weight/BMI Height: 5'4.00" Weight: 200lbs. oz. [id number]; 38.00 BMI Method:Estimated General Appearance: WD/WN, no apparent distress, obese HEENT: PERRL/EOMI Respiratory: lungs clear, normal breath sounds, no respiratory distress, no accessory muscle use Cardiovascular: regular rate, rhythm, no murmur Gastrointestinal: normal bowel sounds, soft; No guarding, No rebound; tenderness (RLQ) Back: no vertebral tenderness, CVA tenderness (R) Neurologic/Psychiatric: alert, normal mood/affect, oriented x 3 Skin: normal color, warm/dry Lymphatic: no adenopathy (SALEEM MENA) Progress/Results/Core Measures Results/Orders Lab Results Laboratory Tests Test 04/30/23 20:42 04/30/23 20:45 Range/Units Urine Color YELLOW Urine Clarity CLEAR Urine pH 6.0 5-9 Urine Specific [place] 1.010 L 1.016-1.022 Urine Protein NEGATIVE NEGATIVE Urine Glucose (UA) NEGATIVE NEGATIVE Urine Ketones NEGATIVE NEGATIVE Urine Nitrite NEGATIVE NEGATIVE Urine Bilirubin NEGATIVE NEGATIVE Urine Urobilinogen 0.2 < = 1.0 MG/DL Urine Leukocyte Esterase NEGATIVE NEGATIVE Urine RBC (Auto) TRACE H NEGATIVE Urine RBC RARE /HPF Urine WBC 0-2 /HPF Urine Squamous Epithelial Cells 5-10 /HPF Urine Crystals NONE /LPF Urine Bacteria FEW H /HPF Urine Casts NONE /LPF Urine Mucus NEGATIVE /LPF Urine Culture Indicated YES Urine Test NEGATIVE NEGATIVE White Blood Count 7.2 4.3-11.0 10^3/uL Red Blood Count 4.06 3.80-5.11 10^6/uL Hemoglobin 11.8 11.5-16.0 g/dL Hematocrit 36 35-52 % Mean Corpuscular Volume 89 80-99 fL Mean Corpuscular Hemoglobin 29 25-34 pg Mean Corpuscular Hemoglobin Concent 33 32-36 g/dL Red Cell Distribution Width 15.5 H 10.0-14.5 % Platelet Count 297 130-400 10^3/uL Mean Platelet Volume 10.5 9.0-12.2 fL Immature Granulocyte % (Auto) 0 % Neutrophils (%) (Auto) 60 42-75 % Lymphocytes (%) (Auto) 33 12-44 % Monocytes (%) (Auto) 5 0-12 % Eosinophils (%) (Auto) 1 0-10 % Basophils (%) (Auto) 0 0-10 % Neutrophils # (Auto) 4.4 1.8-7.8 10^3/uL Lymphocytes # (Auto) 2.4 1.0-4.0 10^3/uL Monocytes # (Auto) 0.4 0.0-1.0 10^3/uL Eosinophils # (Auto) 0.1 0.0-0.3 10^3/uL Basophils # (Auto) 0.0 0.0-0.1 10^3/uL Immature Granulocyte # (Auto) 0.0 0.0-0.1 10^3/uL Sodium Level 139 135-145 MMOL/L Potassium Level 3.3 L 3.6-5.0 MMOL/L Chloride Level 108 H 98-107 MMOL/L Carbon Dioxide Level 19 L 21-32 MMOL/L Anion Gap 12 5-14 MMOL/L Blood Urea Nitrogen 8 7-18 MG/DL Creatinine 0.74 0.60-1.30 MG/DL Estimat Glomerular Filtration Rate 104 BUN/Creatinine Ratio 11 Glucose Level 111 H 70-105 MG/DL Calcium Level 9.3 8.5-10.1 MG/DL (SHAHZAD OLIVIA MD) My Orders Orders - SHAHZAD OLIVIA MD Ed Iv/Invasive Line Start (04/30/23 21:00) Cbc With Automated Diff (04/30/23 21:00) Basic Metabolic Panel (04/30/23 21:00) Ua Culture If Indicated (04/30/23 21:00) Ns Iv 1000 Ml (Ns Iv 1000 Ml) (04/30/23 21:00) Ketorolac Injection (Ketorolac Injection (04/30/23 21:00) Ondansetron Injection (Ondansetron Inj (04/30/23 21:00) Hcg,Qualitative Urine (04/30/23 21:07) Urine Culture (04/30/23 20:42) Ct Abd/Pelvis Wo(Kidney Stone) (04/30/23 21:22) Abdomen/Kub 1view (04/30/23 21:22) (SHAHZAD OLIVIA MD) Medications Given in ED Current Medications Medications Dose Ordered Sig/[place] Route Start Time Stop Time Status Last Admin Dose Admin Ketorolac Tromethamine 15 mg ONCE ONCE IVP 04/30/23 21:00 04/30/23 21:02 DC 04/30/23 21:11 15 MG Ondansetron HCl 4 mg ONCE ONCE IVP 04/30/23 21:00 04/30/23 21:02 DC 04/30/23 21:10 4 MG (SHAHZAD OLIVIA MD) Vital Signs/I&O 04/30/23 20:43 Temp 36.9 Pulse 89 Resp 20 B/P (MAP) 145/83 (103) Pulse Ox 99 O2 Delivery Room Air (SHAHZAD OLIVIA MD) Blood Pressure Mean: 103 Progress Progress Note : Time: 23:02 Progress Note Patient seen and evaluated by me. I have reviewed the medical student's documentation and agree. My eval today includes a physical exam, CBC, BMP, UA and KUB with CT noncontrast abdomen and pelvis. Pertinent physical exam findings - WDWN obese female in NAD. SHe has tenderness to palpation in the right flank and RLQ. No rebound/rovsing's or involuntary guarding. Heart is reg, lungs are clear. VSS - patient is afebrile. Ddx based on H&P - kidney stone, pyelonephritis, diverticulitis, musculoskeletal pain Labs, KUB independently reviewed and interpreted by me. Her CBC is normal Her BMP is pertinent for a slightly low potassium at 3.3 with a lowe CO2 at 19. UA shows trace RBC, 1+ bacteria. Her prgnancy test is negative. Her KUB is unremarkable. CT read by radiology - no visualised kidney stones. Appy identified and appears normal. Patient is treated with Toradol 15mg IV. She has improvement in her pain from a "7" down t a "3". I advised NSAIDs at home and monitoring for worsening or changing symptoms. I do not suspect acute surgical process. No diverticulitis identified on CT either. Patient is given return precautions and verbalizes understanding. All questions are sought and answered. (SHAHZAD OLIVIA MD) Diagnostic Imaging Diagonstic Imaging: CT Comments [facility], [place] NAME: LAURYN RODRIGUEZ [facility] REC#: [id number] PT STATUS: REG ER : 1980 PHYSICIAN: SHAHZAD OLIVIA MD ADMIT DATE: 04/30/23/ER Signed Date of Exam:04/30/23 CT ABD/PELVIS WO(KIDNEY STONE) PROCEDURE: CT urinary tract, rule out kidney stone. TECHNIQUE: Multiple contiguous axial images were obtained through the abdomen and pelvis without the use of intravenous contrast. Auto Exposure Controls were utilized during the CT exam to meet ALARA standards for radiation dose reduction. INDICATION: Right-sided flank pain. Evaluate for kidney stones. COMPARISON: 04/19/2017 FINDINGS: The lung bases demonstrate no pneumonia or edema. There is no pleural or pericardial fluid. Liver demonstrates no noncontrast evidence of a focal intrahepatic abnormality. The gallbladder surgically absent. There is no abnormal biliary dilatation. Spleen is normal. The pancreas is unremarkable. There is a stable left adrenal nodule. This has low density and is compatible with an adenoma. The right adrenal gland is normal. The kidneys demonstrate no hydronephrosis or perinephric fat stranding. There is a low-density focus in the left kidney compatible with presumed cyst. There is no evidence of urolithiasis. There is no stone within the ureters or within the urinary bladder. There is no evidence of bowel obstruction. There is no abnormal bowel thickening. There is moderate stool within the colon. The appendix is normal. The urinary bladder, uterus and adnexa are unremarkable. There is no free air, free fluid or abscess. There is no adenopathy. Aorta is normal in caliber. There is no acute osseous abnormality. IMPRESSION: 1. No CT evidence of an acute inflammatory or obstructive process within the abdomen or pelvis. 2. No findings of urolithiasis or hydronephrosis. There is no perinephric fat stranding. 3. Status post previous cholecystectomy without biliary dilatation. 4. No bowel obstruction or appendicitis. 5. No free fluid. Dictated by: Dictated on workstation # [id number] Dict: 04/30/232155 Trans: 04/30/232202 [id number] Interpreted by: CASSIA URIARTE MD Electronically signed by: CASSIA URIARTE MD 04/30/232202 Diagonstic Imaging: Xray Comments KUB independently reviewed and interpreted by nv - no acute process (SHAHZAD OLIVIA MD) Departure Impression Primary Impression: Abdominal pain Qualified Codes: R10.9 - Unspecified abdominal pain Disposition: 01 HOME, SELF-CARE Condition: Improved Departure-Patient Inst. Decision time for Depature: 23:00 (SHAHZAD OLIVIA MD) Referrals: [facility] (PCP/Family) Primary Care Physician Patient Instructions: Abdominal Pain, Adult ED Add. Discharge Instructions: Follow a clear liquid diet for the next 12 hours and then slowly advance as tolerated. Use over the counter ibuprofen 3 pills (600mg) every 6 hours as needed for pain. Always take ibuprofen with food. If you develop fever, worsening pain, vomiting or any other emergent, concerning symptoms - please return to the Emergency Department for re-evaluation. PLease make a follow up appointment with your doctor. Verification and Attestation of Medical Student E/M Service A medical student performed and documented this service in my presence. I reviewed and verified all information documented by the medical student and made modifications to such information, when appropriate. I personally performed the physical exam and medical decision making. Shahzad Olivia, Apr 30, 2023,23:02 (SHAHZAD OLIVIA MD) Copy Copies To 1: WILL VEGA TAYLOR Apr 30, 2023 21:17 SHAHZAD OLIVIA MD Apr 30, 2023 22:22
[2023-04-30 21:20] LABS: CLARITY,URINE CLEAR; COLOR,URINE YELLOW; GLUCOSE, URINE (UA) NEGATIVE (NEGATIVE); KETONES,URINE NEGATIVE (NEGATIVE); NITRITE,URINE NEGATIVE (NEGATIVE); PROTEIN,URINE NEGATIVE (NEGATIVE)
[2023-04-30 21:21] LABS: BACTERIA,URINE FEW /HPF; BILIRUBIN,URINE NEGATIVE (NEGATIVE); LEUKOCYTE ESTERASE ,URINE NEGATIVE (NEGATIVE); RBC,URINE RARE /HPF; WBC,URINE 0-2 /HPF
--- NOTE | 2023-04-30 22:01 | Diagnostic Imaging Report ---
PROCEDURE: CT urinary tract, rule out kidney stone. TECHNIQUE: Multiple contiguous axial images were obtained through the abdomen and pelvis without the use of intravenous contrast. Auto Exposure Controls were utilized during the CT exam to meet ALARA standards for radiation dose reduction. INDICATION: Right-sided flank pain. Evaluate for kidney stones. COMPARISON: 04/19/2017 FINDINGS: The lung bases demonstrate no pneumonia or edema. There is no pleural or pericardial fluid. Liver demonstrates no noncontrast evidence of a focal intrahepatic abnormality. The gallbladder surgically absent. There is no abnormal biliary dilatation. Spleen is normal. The pancreas is unremarkable. There is a stable left adrenal nodule. This has low density and is compatible with an adenoma. The right adrenal gland is normal. The kidneys demonstrate no hydronephrosis or perinephric fat stranding. There is a low-density focus in the left kidney compatible with presumed cyst. There is no evidence of urolithiasis. There is no stone within the ureters or within the urinary bladder. There is no evidence of bowel obstruction. There is no abnormal bowel thickening. There is moderate stool within the colon. The appendix is normal. The urinary bladder, uterus and adnexa are unremarkable. There is no free air, free fluid or abscess. There is no adenopathy. Aorta is normal in caliber. There is no acute osseous abnormality. IMPRESSION: 1. No CT evidence of an acute inflammatory or obstructive process within the abdomen or pelvis. 2. No findings of urolithiasis or hydronephrosis. There is no perinephric fat stranding. 3. Status post previous cholecystectomy without biliary dilatation. 4. No bowel obstruction or appendicitis. 5. No free fluid. Dictated by: Dictated on workstation # [id number]
--- NOTE | 2023-05-01 07:43 | Diagnostic Imaging Report ---
INDICATION: right flank pain. TECHNIQUE: 2 supine radiograph of the abdomen 10:01 PM CORRELATION STUDY: 04/19/2017 FINDINGS: Imaging of the abdomen demonstrates the bowel gas pattern to be unremarkable and without evidence for obstruction. No significant differential air-fluid levels. No evidence for free air. No pathologic intraabdominal calcifications. Costectomy clips right upper quadrant. Question hepatic enlargement. IMPRESSION: 1. Non-obstructed appearing bowel gas pattern. Dictated by: Dictated on workstation # [id number]
== END 2023-04-30 23:09 | disposition home or self-care (01) ==
LOC: EDUNIT# 20:31 → ER 20:33
DX: R10.31 Right lower quadrant pain (principal); F17.210 Nicotine dependence, cigarettes, uncomplicated; Z87.442 Personal history of urinary calculi
CPT/HCPCS: 36415; 74018; 74176; 80048; 81000; 84703; 85025; 87088